=== PATIENT | female | born 1995 | race Caucasian/White ===

== ENCOUNTER 2024-05-01 08:14 | Inpatient (IN) ==
[2024-05-01 08:28] VITALS: BMI 23.9
[2024-05-01 09:01] LABS: BASOPHILS # (AUTO) 0.1 X10^3/uL (0.0-0.1); BASOPHILS % (AUTO) 0.4 % (0.2-1.0); EOSINOPHILS # (AUTO) 0.2 x10^3/uL (0.0-0.2); EOSINOPHILS % (AUTO) 1.5 % (0.9-2.9); HEMATOCRIT 28.6 % (36.0-47.0); HEMOGLOBIN 9.8 g/dL (12.0-16.0); LYMPHOCYTES # (AUTO) 1.4 X10^3/uL (1.3-2.9); LYMPHOCYTES % (AUTO) 10.2 % (21.0-51.0); MEAN CORPUSCULAR HEMOGLOBIN 29.6 pg (27.0-34.0); MEAN CORPUSCULAR HGB CONC 34.1 g/dL (33.0-35.0); MEAN CORPUSCULAR VOLUME 86.8 fL (80.0-100.0); MEAN PLATELET VOLUME 7.9 fL (7.4-11.0); MONOCYTES # (AUTO) 0.9 x10^3/uL (0.3-0.8); MONOCYTES % (AUTO) 6.3 % (0.0-13.0); NEUTROPHILS # (AUTO) 11.4 x10^3/uL (2.2-4.8); NEUTROPHILS % (AUTO) 81.6 % (42.0-75.0); PLATELET COUNT 263 X10^3/uL (150.0-450.0); RED BLOOD COUNT 3.29 X10^6/uL (3.5-5.4)
[2024-05-01 09:03] LABS: BILIRUBIN,URINE NEGATIVE (NEGATIVE); BLOOD/HEMOGLOBIN,URINE 4+ (NEGATIVE); GLUCOSE, URINE NEGATIVE (NEGATIVE); KETONES,URINE NEGATIVE (NEGATIVE); LEUKOCYTE ESTERASE ,URINE 2+ (NEGATIVE); NITRITES,URINE NEGATIVE (NEGATIVE); PROTEIN,URINE NEGATIVE (NEGATIVE); UROBILINOGEN,URINE NORMAL (NORMAL)
--- NOTE | 2024-05-01 09:07 | DR.PREG ---
HPI Time seen Time Seen by Provider: 05/01/24 09:06 PCP Primary Care Physician: ANAMIKA HPI Comment HPI Comment: According to pt she has been experiencing vaginal bleeding . Her Ob is aware. Pt was seen in office couple of days ago.Pt was sexually active couple of days ago.Now has vaginal bleeding with abdominal pain. pain in the back and belly according to pt is 10 in severity and she is requesting for pain Chief Complaint Chief Complaint Doctors Comments: vaginal bleeding Chief Complaint:: Patient is 24 weeks and starting having pain in her lower stomach and lower back several hours, that comes and goes. Bleeding for 1 month and half continous. Seeing Dr. Wesley Chavez and he is aware of bleeding and patient states he has her on bed rest. Her third pregnacy, no previous complications. Seen Dr. Chavez two days ago, no pain that day just bleeding and bleeding varies per patient Nurses Notes Reviewed Nurses Notes Review: Yes Source History Provided: Patient Mode of Arrival Mode of Arrival: Ambulatory Timing Onset of Chief Complaint: 05/01/24 PMH PMH Past Medical History: No Past Surgical History: Yes Surgical History: Family History History of Family Medical Conditions: Yes Family Medical History: Diabetes Mellitus, CA and Hypertension Social History Type of Tobacco Use: None Does any household member use tobacco: No Alcohol Use: None Lives With: Friend Lives Where: Home Infectious screening In the last 2 months have you had wt loss of >10#?: NO Have you traveled outside the country in the last 6 months?: No Isolation: Standard ROS Review of Systems Constitutional: No Symptoms Reported Eyes: No Symptoms Reported ENTM: No Symptoms Reported Respiratoy: No Symptoms Reported Cardiovascular: No Symptoms Reported Gastrointestinal/Abdominal: See HPI Genitourinary: No Symptoms Reported Neurological: No Symptoms Reported Musculoskeletal: No Symptoms Reported PE Vital Signs Vitals: Vital Signs Temperature 98 F Pulse Rate 117 Pulse Rate 116 Pulse Rate 129 Pulse Rate 92 Pulse Rate 104 Respiratory Rate 28 Respiratory Rate 28 Respiratory Rate 18 Respiratory Rate 21 Blood Pressure 132/91 Blood Pressure 144/91 Blood Pressure 167/103 Blood Pressure 149/86 Blood Pressure 143/85 O2 Sat by Pulse Oximetry 100 O2 Sat by Pulse Oximetry 100 O2 Sat by Pulse Oximetry 100 O2 Sat by Pulse Oximetry 99 O2 Sat by Pulse Oximetry 94 General Limitations: No Limitations General Appearance: Alert, Anxious and In Distress Head Head Exam: Normal Inspection, Atraumatic and Normocephalic Eyes Eye exam: Normal Appearance, PERRL and EOMI ENT ENT Exam: Normal Exam, Normal Oropharynx and Mucous Membranes Moist Neck Neck Exam: Normal Inspection and Full ROM Chest Chest Inspection: Normal Inspection and Symmetric Chest Wall Rise Respiratory Respiratory Exam: Normal Lung Sounds Bilat Respiratory Exam: Bilateral: Clear to Auscultation Cardiovascular Cardiovascular Exam: +S1 and +S2 Abdominal Exam Abdominal Exam: Normal Bowel Sounds, Soft and Other ( ) Neurologic Neurological Exam: Alert Other Exam Other Exam: pos blood noted outside vagina MDM Differential Diagnosis Differential Diagnosis Comment: vaginal bleeding 2nd tremester COURSE Treatment Treatment: labs,u/a ,ultrasound ,tylenol with codeine ROR Labs Reviewed 05/01/24 08:50 05/01/24 08:50 Laboratory: WBC 14.0 X10^3/uL (3.6-10.0) H 05/01/24 08:50 RBC 3.29 X10^6/uL (3.5-5.4) L 05/01/24 08:50 Hgb 9.8 g/dL (12.0-16.0) L 05/01/24 08:50 Hct 28.6 % (36.0-47.0) L 05/01/24 08:50 MCV 86.8 fL (80.0-100.0) 05/01/24 08:50 MCH 29.6 pg (27.0-34.0) 05/01/24 08:50 MCHC 34.1 g/dL (33.0-35.0) 05/01/24 08:50 RDW 14.0 % (11.6-16.5) 05/01/24 08:50 Plt Count 263 X10^3/uL (150.0-450.0) 05/01/24 08:50 MPV 7.9 fL (7.4-11.0) 05/01/24 08:50 Neut % (Auto) 81.6 % (42.0-75.0) H 05/01/24 08:50 Lymph % (Auto) 10.2 % (21.0-51.0) L 05/01/24 08:50 [place] % (Auto) 6.3 % (0.0-13.0) 05/01/24 08:50 Eos % (Auto) 1.5 % (0.9-2.9) 05/01/24 08:50 Baso % (Auto) 0.4 % (0.2-1.0) 05/01/24 08:50 Neut # (Auto) 11.4 x10^3/uL (2.2-4.8) H 05/01/24 08:50 Lymph # (Auto) 1.4 X10^3/uL (1.3-2.9) 05/01/24 08:50 [place] # (Auto) 0.9 x10^3/uL (0.3-0.8) H 05/01/24 08:50 Eos # (Auto) 0.2 x10^3/uL (0.0-0.2) 05/01/24 08:50 Baso # (Auto) 0.1 X10^3/uL (0.0-0.1) 05/01/24 08:50 Absolute Nucleated RBC 0.1 /100WBC 05/01/24 08:50 Sodium 139 mmol/L (136-145) 05/01/24 08:50 Corrected Sodium TNP 05/01/24 08:50 Potassium 3.3 mmol/L (3.5-5.1) L 05/01/24 08:50 Chloride 104 mmol/L (98-107) 05/01/24 08:50 Carbon Dioxide 27.4 mmol/L (21-32) 05/01/24 08:50 BUN 6 mg/dL (7-18) L 05/01/24 08:50 Creatinine 0.48 mg/dL (0.55-1.02) L 05/01/24 08:50 Est GFR (MDRD) Af Amer > 60 (>60) 05/01/24 08:50 Est GFR (MDRD) Non-Af > 60 (>60) 05/01/24 08:50 Glucose 91 mg/dL (65-99) 05/01/24 08:50 Calcium 8.3 mg/dL (8.5-10.1) L 05/01/24 08:50 Corrected Calcium 9.7 mg/dL (8.5-10.1) 05/01/24 08:50 Total Bilirubin 0.20 mg/dL (0.2-1.0) 05/01/24 08:50 AST 23 Units/L (15-37) 05/01/24 08:50 ALT 23 Units/L (12-78) 05/01/24 08:50 Alkaline Phosphatase 109 Units/L (46-116) 05/01/24 08:50 Total Protein 6.4 g/dL (6.4-8.2) 05/01/24 08:50 Albumin 2.3 g/dL (3.4-5.0) L 05/01/24 08:50 Globulin 4.1 g/dL (2.5-4.5) 05/01/24 08:50 Albumin/Globulin Ratio 0.6 Ratio (1.1-2.1) L 05/01/24 08:50 HCG, Quant 84855 mIU/mL (0-6) H 05/01/24 08:50 Specimen Type Clean catch urine 05/01/24 08:38 Urine Color Pale yellow (YELLOW) 05/01/24 08:38 Urine Appearance Hazy (CLEAR) 05/01/24 08:38 Urine pH 8.0 (5.0 - 8.0) 05/01/24 08:38 Ur Specific Seth 1.015 (1.000-1.030) 05/01/24 08:38 Urine Protein Negative (NEGATIVE) 05/01/24 08:38 Urine Glucose (UA) Negative (NEGATIVE) 05/01/24 08:38 Urine Ketones Negative (NEGATIVE) 05/01/24 08:38 Urine Blood 4+ (NEGATIVE) 05/01/24 08:38 Urine Nitrite Negative (NEGATIVE) 05/01/24 08:38 Urine Bilirubin Negative (NEGATIVE) 05/01/24 08:38 Urine Urobilinogen Normal (NORMAL) 05/01/24 08:38 Ur Leukocyte Esterase 2+ (NEGATIVE) 05/01/24 08:38 Urine RBC 20-30 /HPF (0-3) A 05/01/24 08:38 Urine WBC 3-5 /HPF (0-5) 05/01/24 08:38 Ur Squamous Epith Cells Rare /HPF (NEGATIVE) 05/01/24 08:38 Amorphous Sediment 3+ /HPF (NEGATIVE) 05/01/24 08:38 Urine Bacteria 2+ /HPF (NEGATIVE) 05/01/24 08:38 Ur Culture Indicated? Yes/culture set up 05/01/24 08:38 Opioid Opioid Risk Tool Total: 0 Total Score Risk Category: Low Risk Copyright: Jovani LÓPEZ predicting aberrant behaviors Discharge Plan Diagnosis Discharge Problem: demise Discharge Plan Patient Disposition: 09 ADMITTED INPATIENT Condition: Stable ADDITIONAL NOTES Additional Notes Additional Notes: pt began experiencing increase abdominal and back pain. Morphine given Unable to notice heart beat .obstetric ultrasound ordered. head noted as patient began to experience increased pain . spontaneous vaginally delivered demised fetus . called ob. Agreed to come and see patient .cord clamped .Pt will be admitted
[2024-05-01 09:12] LABS: APPEARANCE,URINE HAZY (CLEAR); BACTERIA,URINE 2+ /HPF (NEGATIVE); COLOR,URINE PALE YELLOW (YELLOW); RBC,URINE 20-30 /HPF (0-3); SQUAMOUS EPITHELIAL CELL,UR RARE /HPF (NEGATIVE)
[2024-05-01] MEDS: TYLENOL #3 TAB (W/CODEINE) PO ONE (09:14)
[2024-05-01 09:17] LABS: ALANINE AMINOTRANSFERASE 23 Units/L (12-78); ALBUMIN 2.3 g/dL (3.4-5.0); ALKALINE PHOSPHATASE 109 Units/L (46-116); ASPARTATE AMINO TRANSFERASE 23 Units/L (15-37); BLOOD UREA NITROGEN 6 mg/dL (7-18); CALCIUM 8.3 mg/dL (8.5-10.1); CARBON DIOXIDE 27.4 mmol/L (21-32); CHLORIDE 104 mmol/L (98-107); COR CA(FOR HYPOALB) 9.7 mg/dL (8.5-10.1); CREATININE 0.48 mg/dL (0.55-1.02); GLUCOSE 91 mg/dL (65-99); POTASSIUM 3.3 mmol/L (3.5-5.1); SODIUM 139 mmol/L (136-145); TOTAL PROTEIN 6.4 g/dL (6.4-8.2); eGFR NON BLACK RACES > 60 (>60)
[2024-05-01 09:51] LABS: HCG,QUANTITATIVE 26653 mIU/mL (0-6)
[2024-05-01] MEDS: MORPHINE SULFATE INJ 2 MG INJ IVP ONE (10:05)
[2024-05-01] MEDS: PITOCIN IVP ONE (10:33)
[2024-05-01] MEDS: NS 1,000 ML IV 1,000 ML IV ONE (10:35)
[2024-05-01] MEDS: NS 1,000 ML IV 1,000 ML IV SCH (10:36)
[2024-05-01] MEDS: OXYTOCIN 20 UNIT/1,000 ML-NS 20 UNIT/1,000 ML PLAST..BAG IV SCH (10:40)
[2024-05-01] MEDS ORDERED: MOTRIN TAB 800 MG PO PRN ×2 (10:48→12:54)
[2024-05-01] MEDS: ZOFRAN INJ 4 MG VIAL IVP ONE (10:50)
[2024-05-01 10:53] LABS: INR 1.02 (0.8-1.3)
[2024-05-01 10:54] VITALS: O2SAT 99
[2024-05-01 12:42] LABS: BASOPHILS % (AUTO) 0.3 % (0.2-1.0); EOSINOPHILS # (AUTO) 0.1 x10^3/uL (0.0-0.2); EOSINOPHILS % (AUTO) 0.8 % (0.9-2.9); HEMATOCRIT 28.4 % (36.0-47.0); HEMOGLOBIN 9.6 g/dL (12.0-16.0); LYMPHOCYTES # (AUTO) 1.1 X10^3/uL (1.3-2.9); LYMPHOCYTES % (AUTO) 7.9 % (21.0-51.0); MEAN CORPUSCULAR HEMOGLOBIN 29.3 pg (27.0-34.0); MEAN CORPUSCULAR HGB CONC 33.7 g/dL (33.0-35.0); MEAN CORPUSCULAR VOLUME 86.9 fL (80.0-100.0); MEAN PLATELET VOLUME 8.1 fL (7.4-11.0); MONOCYTES # (AUTO) 0.7 x10^3/uL (0.3-0.8); MONOCYTES % (AUTO) 4.9 % (0.0-13.0); NEUTROPHILS % (AUTO) 86.1 % (42.0-75.0); PLATELET COUNT 256 X10^3/uL (150.0-450.0); RED BLOOD COUNT 3.27 X10^6/uL (3.5-5.4); RED CELL DISTRIBUTION WIDTH 13.4 % (11.6-16.5); WHITE BLOOD COUNT 13.9 X10^3/uL (3.6-10.0)
[2024-05-01] MEDS ORDERED: DERMOPLAST PAIN RELIEF SPRAY TOP PRN (12:54)
[2024-05-01] MEDS ORDERED: AMBIEN PO PRN (12:54)
[2024-05-01] MEDS ORDERED: MILK OF MAGNESIA PO PRN (12:54)
[2024-05-01] MEDS: PITOCIN ONE (14:24)
[2024-05-01] MEDS: NS 1,000 ML IV 1,000 ML ONE (14:24)
[2024-05-01] MEDS: ZOFRAN INJ 4 MG VIAL ONE (14:25)
[2024-05-01] MEDS: ADACEL or BOOSTRIX TDaP VACCINE IM ONE (18:16)
[2024-05-02 05:06] LABS: HEMATOCRIT 22.8 % (36.0-47.0); HEMOGLOBIN 7.7 g/dL (12.0-16.0)
[2024-05-02 05:07] VITALS: BP 95/51; PULSE 84; RESP 20; TEMP 98.2
[2024-05-02] MEDS: PRENATAL PLUS PO SCH (08:55)
[2024-05-02] MEDS: DEPO-PROVERA CONTRACEPTIVE INJ IM ONE (08:55)
== END 2024-05-02 10:20 | disposition home or self-care (01) | DRG 807 ==
LOC: ER 08:14 → LD 10:41 → MED/SURG 11:58
PROVIDERS: ADMIT Specialist; ATTEND Specialist
DX: O60.12X0 Preterm labor second trimester with preterm delivery second trimester, not applicable or unspecified; E87.6 Hypokalemia; Z37.1 Single stillbirth; O20.8 Other hemorrhage in early pregnancy; Z3A.24 24 weeks gestation of pregnancy